=== PATIENT | female | born 1955 | race Caucasian/White ===

== ENCOUNTER 2016-07-08 10:36 | Emergency (ER) | payer MEDICARE ==
[2016-07-08 11:00] LABS: BASOPHILS 0.3 % (0.0-2.0); EOSINOPHILS 1.3 % (0-7); HEMOGLOBIN 15.1 g/dL (12-16); IMMATURE GRANULOCYTES 0.1 % (0-5); LYMPHOCYTES 23.5 % (15-50); MCH 29.8 pg (26.0-34.0); MCHC 33.6 g/dL (31.0-37.0); MCV 88.9 fL (80.0-100.0); MEAN PLATELET VOLUME 10.5 fL (7.4-10.4); MONOCYTES 10.1 % (2-11); NEUTROPHILS 64.7 % (40-80); PLATELET COUNT 183 10x3/uL (130-400); RBC 5.06 10x6/uL (4.00-5.40); RDW 13.4 % (11.5-14.5); WBC 7.1 10x3/uL (4.8-10.8)
[2016-07-08 11:24] LABS: ALBUMIN 4.5 g/dL (3.4-5.0); ALKALINE PHOSPHATASE 44 U/L (46-116); ALT (SGPT) 26 U/L (10-68); AMYLASE - SERUM 54 U/L (25-115); BILIRUBIN - TOTAL 0.53 mg/dL (0.2-1.3); CALC OSMOLALITY 271 mosm/kg (275-300); CALCIUM 9.6 mg/dL (8.5-10.1); CARBON DIOXIDE 28.4 mmol/L (21.0-32.0); CHLORIDE - SERUM 98 mmol/L (98-107); CREATININE - SERUM 0.8 mg/dL (0.6-1.3); GLUCOSE 111 mg/dL (74-106); LIPASE 213 U/L (73-393); POTASSIUM - SERUM 3.9 mmol/L (3.5-5.1); PROTEIN - SERUM 7.6 g/dL (6.4-8.2); SODIUM 136 mmol/L (136-145); UREA NITROGEN 9 mg/dL (7-18); eGFR NON AFRICAN AMERICAN 78 mL/min (90-120)
[2016-07-08 11:49] LABS: APPEARANCE CLEAR (CLEAR); BILIRUBIN NEGATIVE (NEGATIVE); COLOR STRAW (YELLOW); GLUCOSE NEGATIVE (NEGATIVE); KETONE NEGATIVE (NEGATIVE); LEUKOCYTE ESTERASE NEGATIVE (NEGATIVE); NITRITE NEGATIVE (NEGATIVE); PROTEIN NEGATIVE (NEGATIVE); UROBILINOGEN NORMAL (NORMAL)
== END 2016-07-08 16:05 | disposition home or self-care (01) ==
LOC: D.ER 10:36
PROVIDERS: Emergency Medicine; Physician Assistant
DX: R10.30 Lower abdominal pain, unspecified (principal); R06.02 Shortness of breath; Z98.890 Other specified postprocedural states

== ENCOUNTER 2016-09-01 17:46 | Emergency (ER) | payer MEDICARE ==
[2016-09-01 19:16] LABS: APPEARANCE CLEAR (CLEAR); BILIRUBIN NEGATIVE (NEGATIVE); COLOR STRAW (YELLOW); GLUCOSE NEGATIVE (NEGATIVE); KETONE NEGATIVE (NEGATIVE); LEUKOCYTE ESTERASE NEGATIVE (NEGATIVE); NITRITE NEGATIVE (NEGATIVE); PROTEIN NEGATIVE (NEGATIVE); UROBILINOGEN NORMAL (NORMAL)
[2016-09-01 19:49] LABS: BASOPHILS 0.3 % (0.0-2.0); EOSINOPHILS 2.2 % (0-7); HEMATOCRIT 42.9 % (36.0-48.0); HEMOGLOBIN 14.7 g/dL (12-16); IMMATURE GRANULOCYTES 0.2 % (0-5); LYMPHOCYTES 28.3 % (15-50); MCHC 34.3 g/dL (31.0-37.0); MCV 87.6 fL (80.0-100.0); MEAN PLATELET VOLUME 11.1 fL (7.4-10.4); MONOCYTES 13.1 % (2-11); NEUTROPHILS 55.9 % (40-80); PLATELET COUNT 178 10x3/uL (130-400); RDW 13.2 % (11.5-14.5); WBC 6.5 10x3/uL (4.8-10.8)
[2016-09-01 20:08] LABS: ALBUMIN 4.7 g/dL (3.4-5.0); ALKALINE PHOSPHATASE 48 U/L (46-116); ALT (SGPT) 23 U/L (10-68); BILIRUBIN - TOTAL 0.34 mg/dL (0.2-1.3); CALC OSMOLALITY 284 mosm/kg (275-300); CALCIUM 9.5 mg/dL (8.5-10.1); CARBON DIOXIDE 30.1 mmol/L (21.0-32.0); CHLORIDE - SERUM 102 mmol/L (98-107); CREATININE - SERUM 0.7 mg/dL (0.6-1.3); GLUCOSE 93 mg/dL (74-106); PROTEIN - SERUM 7.9 g/dL (6.4-8.2); SODIUM 143 mmol/L (136-145); UREA NITROGEN 12 mg/dL (7-18); eGFR NON AFRICAN AMERICAN > 90 mL/min (90-120)
== END 2016-09-01 20:48 | disposition home or self-care (01) ==
LOC: D.ER 17:46
PROVIDERS: Family Medicine
DX: K92.2 Gastrointestinal hemorrhage, unspecified (principal)

== ENCOUNTER 2016-12-02 08:33 | Day surgery (SDC) | payer MEDICARE ==
[~2016-12-02] VITALS: Ht 165.1 cm; Wt 52.3 kg
[2016-12-02] MEDS ORDERED: HYDROCODON-ACE1 EAC7 PO (09:57)
[2016-12-02 09:58] VITALS: BP 125/73; Ht 165.1 cm; Wt 52.3 kg
[2016-12-02 10:00] LABS: BASOPHILS 0.4 % (0-2); EOSINOPHILS 3.5 % (0-7); HEMATOCRIT 44.4 % (36.0-48.0); HEMOGLOBIN 14.9 g/dL (12-16); LYMPHOCYTES 29.9 % (15-50); MCH 30.5 pg (26.0-34.0); MCHC 33.6 g/dL (31.0-37.0); MCV 90.8 fL (80.0-100.0); MEAN PLATELET VOLUME 11.1 fL (7.4-10.4); MONOCYTES 11.9 % (2-11); NEUTROPHILS 54.3 % (40-80); RBC 4.89 10x6/uL (4.00-5.40); RDW 13.5 % (11.5-14.5); WBC 4.9 10x3/uL (4.8-10.8)
[2016-12-02 10:01] LABS: PLATELET COUNT 218 10x3/uL (130-400)
[2016-12-02 10:16] LABS: CALC OSMOLALITY 280 mosm/kg (275-300); CALCIUM 9.3 mg/dL (8.5-10.1); CARBON DIOXIDE 28.9 mmol/L (21.0-32.0); CHLORIDE - SERUM 105 mmol/L (98-107); CREATININE - SERUM 0.8 mg/dL (0.6-1.3); GLUCOSE 105 mg/dL (74-106); SODIUM 142 mmol/L (136-145); UREA NITROGEN 8 mg/dL (7-18); eGFR NON AFRICAN AMERICAN 78 mL/min (90-120)
--- NOTE | 2016-12-02 10:30 | NUR ---
1000 2 FLEETS ENEMAS GIVEN.
[2016-12-02 11:30] LABS: HCG URINE NEGATIVE (NEGATIVE)
--- NOTE | 2016-12-02 15:56 | NUR ---
PROCEDURE ANESTHESIA STARTED THAN TIVA AVAILABLE AND FINISHED CASE.PT. RECEIVED 3MG VERSED AND 0.5MG HYDROMORPHONE.
--- NOTE | 2016-12-05 19:30 | PRO ---
PATIENT:ANA RITCHIE MEDICAL RECORD: [id number] : 57 LOCATION:D.END ADMISSION DATE: 12/02/16 PROCEDURE PERFORMED BY: JAY CAMPOS MD DATE OF PROCEDURE: 12/02/2016 PSYCH ASSISTANT: Jay Campos MD PROCEDURE: Flexible sigmoidoscopy with hemorrhoidal banding and biopsy. INDICATION: The patient is a 60-year-old white female with a history of colonic inertia, severe adhesions, stemming from endometriosis status post subtotal colectomy many years ago, basically presents for evaluation of intermittent hematochezia and rectal pain. PREMEDICATION: Taper anesthesia. She also received couple mg of Versed IV push. INSTRUMENT: Olympus video adjustable colonoscope and then gastroscope. FINDINGS: Rectal exam revealed small external hemorrhoids as well as what looked like a prolapsing anal papilla. The endoscope was then passed through the rectum and to the small bowel without difficulty. Noted were surgical changes consistent with a subtotal colectomy with anastomotic site roughly 15 cm from the anal verge. The exam was completely normal other than this with the exception of somewhat friable rectal mucosa, small internal hemorrhoids on retroflexion of the rectum, and this what looked like a hypertrophied, inflamed anal papilla at the level of the dentate line. This was quite friable. I took a couple small biopsies from it. I also banded the hemorrhoids with hemorrhoidal banding over the tip of the gastroscope times 4, placed in a circumferential manner just proximal to the dentate line. There were no polyp or lesions, proctitis, diverticular disease, etc. The anastomotic site looked normal. The patient tolerated the procedure well without any immediate complications. IMPRESSION: 1. Small external hemorrhoids. 2. A 1.5 cm inflamed appearing, hypertrophied anal papilla, status post biopsy. Cannot totally rule out something like condyloma or even early anal carcinoma. 3. Small internal hemorrhoids, now status post hemorrhoidal banding times 4. 4. Surgical changes consistent with subtotal colectomy with anastomotic site rectosigmoid junction, roughly 15 cm from the anal verge. 5. Slightly friable rectal mucosa. 6. Otherwise, normal sigmoidoscopy. RECOMMENDATIONS: 1. Follow up biopsy results. 2. Repeat hemorrhoidal banding on a p.r.n. basis. 3. Flex sig every 5 years in light of her family history of colon cancer. 4. Consider surgical excision of this anal lesion depending on her biopsy results. TRANSINT:[id number] Voice Confirmation ID: [id number] DOCUMENT ID: [id number] PROCEDURE NOTE [id number] ANA RITCHIE JOHN MD at 1930 CC: [id number] DICTATION DATE: 12/02/16 1338 [facility] CONCI[facility]GE: 12/03/16 0807 [facility] 12/02/16 [id number] [place] [address]
== END 2016-12-02 14:20 | disposition home or self-care (01) ==
LOC: D.ENDO 08:33
PROVIDERS: Anesthesiology; Internal Medicine Gastroenterology
DX: K64.4 Residual hemorrhoidal skin tags (principal); K64.8 Other hemorrhoids; D12.9 Benign neoplasm of anus and anal canal

== ENCOUNTER → 2016-12-04 | Emergency (ER) | payer MEDICARE ==
[2016-12-02 09:58] VITALS: BMI 19.1
[~2016-12-04] MED LIST: HYDROCODON-ACE1 EAC7 PO
[2016-12-04 13:20] LABS: BASOPHILS 0.1 % (0-2); EOSINOPHILS 0.9 % (0-7); HEMATOCRIT 44.7 % (36.0-48.0); HEMOGLOBIN 14.9 g/dL (12-16); IMMATURE GRANULOCYTES 0.1 % (0-5); LYMPHOCYTES 19.4 % (15-50); MCH 29.8 pg (26.0-34.0); MCHC 33.3 g/dL (31.0-37.0); MCV 89.4 fL (80.0-100.0); MEAN PLATELET VOLUME 11.1 fL (7.4-10.4); MONOCYTES 9.7 % (2-11); NEUTROPHILS 69.8 % (40-80); PLATELET COUNT 183 10x3/uL (130-400); RDW 13.5 % (11.5-14.5); WBC 6.9 10x3/uL (4.8-10.8)
[2016-12-04 13:37] LABS: ALBUMIN 4.4 g/dL (3.4-5.0); ALKALINE PHOSPHATASE 55 U/L (46-116); ALT (SGPT) 23 U/L (10-68); BILIRUBIN - TOTAL 0.38 mg/dL (0.2-1.3); CALC OSMOLALITY 279 mosm/kg (275-300); CALCIUM 9.6 mg/dL (8.5-10.1); CARBON DIOXIDE 24.9 mmol/L (21.0-32.0); CHLORIDE - SERUM 105 mmol/L (98-107); CREATININE - SERUM 0.7 mg/dL (0.6-1.3); GLUCOSE 104 mg/dL (74-106); MAGNESIUM - SERUM 2.1 mg/dL (1.8-2.4); POTASSIUM - SERUM 3.8 mmol/L (3.5-5.1); PROTEIN - SERUM 7.8 g/dL (6.4-8.2); SODIUM 141 mmol/L (136-145); UREA NITROGEN 9 mg/dL (7-18); eGFR NON AFRICAN AMERICAN > 90 mL/min (90-120)
== END ==
LOC: D.ER 10:11
PROVIDERS: Emergency Medicine
DX: K64.4 Residual hemorrhoidal skin tags (principal); R10.9 Unspecified abdominal pain

== ENCOUNTER → 2017-02-06 16:52 | Outpatient (CLI) | payer MEDICARE ==
[2016-12-02 09:58] VITALS: BMI 19.1
== END | disposition home or self-care (01) ==
LOC: D.MAMMO 10-17 16:15
DX: Z12.31 Encounter for screening mammogram for malignant neoplasm of breast (principal)

== ENCOUNTER → 2017-02-14 16:55 | Outpatient (CLI) | payer MEDICARE ==
[2016-12-02 09:58] VITALS: BMI 19.1
== END | disposition home or self-care (01) ==
LOC: D.MAMMO 13:00
DX: R92.8 Other abnormal and inconclusive findings on diagnostic imaging of breast (principal)

== ENCOUNTER 2017-02-28 14:04 | Emergency (ER) | payer MEDICARE ==
[2016-12-02 09:58] VITALS: BMI 19.1
== END 2017-02-28 14:07 | disposition left against medical advice (07) ==
LOC: D.ER 14:04
DX: R10.9 Unspecified abdominal pain (principal)

== ENCOUNTER 2017-02-28 15:48 | Emergency (ER) | payer MEDICARE ==
[2016-12-02 09:58] VITALS: BMI 19.1
[2017-02-28 16:34] LABS: BASOPHILS 0.3 % (0-2); EOSINOPHILS 2.7 % (0-7); HEMATOCRIT 45.8 % (36.0-48.0); HEMOGLOBIN 15.6 g/dL (12-16); IMMATURE GRANULOCYTES 0.1 % (0-5); LYMPHOCYTES 29.3 % (15-50); MCH 30.4 pg (26.0-34.0); MCHC 34.1 g/dL (31.0-37.0); MCV 89.1 fL (80.0-100.0); MEAN PLATELET VOLUME 11.1 fL (7.4-10.4); MONOCYTES 10.1 % (2-11); NEUTROPHILS 57.5 % (40-80); PLATELET COUNT 183 10x3/uL (130-400); RBC 5.14 10x6/uL (4.00-5.40); RDW 13.7 % (11.5-14.5); WBC 7.6 10x3/uL (4.8-10.8)
[2017-02-28 17:01] LABS: ALBUMIN 4.6 g/dL (3.4-5.0); ALKALINE PHOSPHATASE 59 U/L (46-116); ALT (SGPT) 23 U/L (10-68); AMYLASE - SERUM 61 U/L (25-115); CALC OSMOLALITY 281 mosm/kg (275-300); CALCIUM 9.4 mg/dL (8.5-10.1); CARBON DIOXIDE 26.4 mmol/L (21.0-32.0); CHLORIDE - SERUM 102 mmol/L (98-107); CREATININE - SERUM 0.7 mg/dL (0.6-1.3); GLUCOSE 98 mg/dL (74-106); LIPASE 196 U/L (73-393); SODIUM 142 mmol/L (136-145); UREA NITROGEN 11 mg/dL (7-18); eGFR NON AFRICAN AMERICAN 90 mL/min (90-120)
[2017-02-28 18:59] LABS: APPEARANCE CLEAR (CLEAR); COLOR YELLOW (YELLOW); GLUCOSE NEGATIVE (NEGATIVE); KETONE NEGATIVE (NEGATIVE); LEUKOCYTE ESTERASE NEGATIVE (NEGATIVE); NITRITE NEGATIVE (NEGATIVE); PROTEIN NEGATIVE (NEGATIVE); UROBILINOGEN NORMAL (NORMAL)
[2017-02-28 19:00] LABS: BILIRUBIN NEGATIVE (NEGATIVE)
== END 2017-02-28 19:30 | disposition home or self-care (01) ==
LOC: D.ER 15:48
PROVIDERS: Emergency Medicine
DX: R10.9 Unspecified abdominal pain (principal); K59.00 Constipation, unspecified

== ENCOUNTER 2017-03-28 13:15 | Emergency (ER) | payer MEDICARE ==
[2016-12-02 09:58] VITALS: BMI 19.1
== END 2017-03-28 14:53 | disposition home or self-care (01) ==
LOC: D.ER 13:15
DX: R09.1 Pleurisy (principal)

== ENCOUNTER 2017-05-30 12:41 | Emergency (ER) | payer MEDICARE ==
[2016-12-02 09:58] VITALS: BMI 19.1
[2017-05-30 14:40] LABS: BASOPHILS 0.3 % (0-2); EOSINOPHILS 0.9 % (0-7); HEMATOCRIT 43.7 % (36.0-48.0); HEMOGLOBIN 15.2 g/dL (12-16); IMMATURE GRANULOCYTES 0.1 % (0-5); LYMPHOCYTES 24.5 % (15-50); MCH 30.8 pg (26.0-34.0); MCHC 34.8 g/dL (31.0-37.0); MCV 88.6 fL (80.0-100.0); MEAN PLATELET VOLUME 10.6 fL (7.4-10.4); MONOCYTES 8.1 % (2-11); NEUTROPHILS 66.1 % (40-80); PLATELET COUNT 176 10x3/uL (130-400); RBC 4.93 10x6/uL (4.00-5.40); RDW 13.4 % (11.5-14.5); WBC 6.8 10x3/uL (4.8-10.8)
[2017-05-30 15:19] LABS: ALBUMIN 4.6 g/dL (3.4-5.0); ALKALINE PHOSPHATASE 62 U/L (46-116); ALT (SGPT) 23 U/L (10-68); CALC OSMOLALITY 277 mosm/kg (275-300); CALCIUM 9.4 mg/dL (8.5-10.1); CARBON DIOXIDE 29.9 mmol/L (21.0-32.0); CHLORIDE - SERUM 101 mmol/L (98-107); CREATININE - SERUM 0.8 mg/dL (0.6-1.3); GLUCOSE 103 mg/dL (74-106); PROTEIN - SERUM 8.1 g/dL (6.4-8.2); SODIUM 140 mmol/L (136-145); UREA NITROGEN 9 mg/dL (7-18); eGFR NON AFRICAN AMERICAN 77 mL/min (90-120)
== END 2017-05-30 17:03 | disposition home or self-care (01) ==
LOC: D.ER 12:41
PROVIDERS: Emergency Medicine
DX: R10.9 Unspecified abdominal pain (principal)

== ENCOUNTER 2017-07-08 10:04 | Emergency (ER) | payer MEDICARE ==
[2016-12-02 09:58] VITALS: BMI 19.1
[2017-07-08 10:50] LABS: BASOPHILS 0.1 % (0-2); EOSINOPHILS 0.8 % (0-7); HEMATOCRIT 43.8 % (36.0-48.0); IMMATURE GRANULOCYTES 0.1 % (0-5); LYMPHOCYTES 15.6 % (15-50); MCH 30.4 pg (26.0-34.0); MCHC 34.2 g/dL (31.0-37.0); MCV 88.8 fL (80.0-100.0); MEAN PLATELET VOLUME 10.6 fL (7.4-10.4); MONOCYTES 8.5 % (2-11); NEUTROPHILS 74.9 % (40-80); PLATELET COUNT 208 10x3/uL (130-400); RBC 4.93 10x6/uL (4.00-5.40); RDW 13.3 % (11.5-14.5); WBC 7.4 10x3/uL (4.8-10.8)
[2017-07-08 10:59] LABS: PROTIME 12.8 SECONDS (11.6-15.0)
[2017-07-08 11:01] LABS: D-DIMER-QUANTITATIVE < 0.27 ug/mLFEU (0.20-0.54)
[2017-07-08 11:13] LABS: ALBUMIN 4.5 g/dL (3.4-5.0); ALKALINE PHOSPHATASE 59 U/L (46-116); ALT (SGPT) 22 U/L (10-68); CALC OSMOLALITY 270 mosm/kg (275-300); CALCIUM 9.3 mg/dL (8.5-10.1); CHLORIDE - SERUM 97 mmol/L (98-107); CREATININE - SERUM 0.9 mg/dL (0.6-1.3); GLUCOSE 118 mg/dL (74-106); PROTEIN - SERUM 7.8 g/dL (6.4-8.2); SODIUM 135 mmol/L (136-145); UREA NITROGEN 12 mg/dL (7-18); eGFR NON AFRICAN AMERICAN 68 mL/min (90-120)
[2017-07-08 11:14] LABS: CKMB 1.7 U/L (0.0-3.6); CREATINE KINASE 114 UL (21-215); MAGNESIUM - SERUM 2.2 mg/dL (1.8-2.4); TROPONIN-I < 0.017 ng/mL (0.000-0.060)
== END 2017-07-08 11:58 | disposition home or self-care (01) ==
LOC: D.ER 10:04
PROVIDERS: Family Medicine
DX: J06.9 Acute upper respiratory infection, unspecified (principal)

== ENCOUNTER → 2017-09-04 18:54 | Outpatient (CLI) | payer MEDICARE ==
[2016-12-02 09:58] VITALS: BMI 19.1
== END ==
LOC: D.MAMMO 13:00
DX: R92.8 Other abnormal and inconclusive findings on diagnostic imaging of breast (principal)

== ENCOUNTER 2017-09-15 13:09 | Emergency (ER) | payer MEDICARE ==
[2016-12-02 09:58] VITALS: BMI 19.1
== END 2017-09-15 16:13 | disposition home or self-care (01) ==
LOC: D.ER 13:09
DX: S93.402A Sprain of unspecified ligament of left ankle, initial encounter (principal); W19.XXXA Unspecified fall, initial encounter; Y93.89 Activity, other specified; Y92.019 Unspecified place in single-family (private) house as the place of occurrence of the external cause

== ENCOUNTER 2018-03-21 16:46 | Emergency (ER) | payer MEDICARE ==
[~2018-03-21] VITALS: Ht 165.1 cm; Wt 52.3 kg
[2018-03-21 16:57] VITALS: Ht 165.1 cm; Wt 52.3 kg
[2018-03-21 17:11] LABS: BASOPHILS 0.5 % (0-2); EOSINOPHILS 2.7 % (0-7); HEMATOCRIT 41.3 % (36.0-48.0); HEMOGLOBIN 14.4 g/dL (12-16); IMMATURE GRANULOCYTES 0.4 % (0-5); LYMPHOCYTES 37.5 % (15-50); MCH 30.7 pg (26.0-34.0); MCHC 34.9 g/dL (31.0-37.0); MCV 88.1 fL (80.0-100.0); MEAN PLATELET VOLUME 11.1 fL (7.4-10.4); MONOCYTES 11.1 % (2-11); NEUTROPHILS 47.8 % (40-80); PLATELET COUNT 167 10x3/uL (130-400); RBC 4.69 10x6/uL (4.00-5.40); RDW 13.7 % (11.5-14.5); WBC 5.6 10x3/uL (4.8-10.8)
[2018-03-21 17:48] LABS: ALBUMIN 4.4 g/dL (3.4-5.0); ALKALINE PHOSPHATASE 51 U/L (46-116); ALT (SGPT) 26 U/L (10-68); BILIRUBIN - TOTAL 0.48 mg/dL (0.2-1.3); CALC OSMOLALITY 266 mosm/kg (275-300); CARBON DIOXIDE 27.2 mmol/L (21.0-32.0); CHLORIDE - SERUM 99 mmol/L (98-107); CREATININE - SERUM 0.7 mg/dL (0.6-1.3); GLUCOSE 103 mg/dL (74-106); POTASSIUM - SERUM 3.4 mmol/L (3.5-5.1); PROTEIN - SERUM 7.7 g/dL (6.4-8.2); SODIUM 135 mmol/L (136-145); UREA NITROGEN 5 mg/dL (7-18); eGFR NON AFRICAN AMERICAN 90 mL/min (90-120)
[2018-03-21 17:54] LABS: CKMB 1.1 U/L (0.0-3.6); CREATINE KINASE 101 UL (21-215)
[2018-03-21 17:58] LABS: TROPONIN-I < 0.017 ng/mL (0.000-0.060)
[2018-03-21 21:27] VITALS: BP 135/74
== END 2018-03-21 21:27 | disposition home or self-care (01) ==
LOC: D.ER 16:46
PROVIDERS: Family Medicine
DX: R07.81 Pleurodynia (principal); R06.00 Dyspnea, unspecified; I25.10 Atherosclerotic heart disease of native coronary artery without angina pectoris; Z86.11 Personal history of tuberculosis

== ENCOUNTER 2018-07-23 15:47 | Emergency (ER) | payer MEDICARE ==
[~2018-07-23] VITALS: Ht 165.1 cm; Wt 54.5 kg
[2018-07-23 15:50] VITALS: BP 160/105; Ht 165.1 cm; Wt 54.5 kg
[2018-07-23 16:22] LABS: BASOPHILS 0.3 % (0-2); EOSINOPHILS 3.6 % (0-7); HEMATOCRIT 39.7 % (36.0-48.0); HEMOGLOBIN 13.7 g/dL (12-16); IMMATURE GRANULOCYTES 0.2 % (0-5); LYMPHOCYTES 28.4 % (15-50); MCH 30.5 pg (26.0-34.0); MCHC 34.5 g/dL (31.0-37.0); MCV 88.4 fL (80.0-100.0); MEAN PLATELET VOLUME 10.4 fL (7.4-10.4); MONOCYTES 11.4 % (2-11); NEUTROPHILS 56.1 % (40-80); PLATELET COUNT 192 10x3/uL (130-400); RBC 4.49 10x6/uL (4.00-5.40); RDW 13.3 % (11.5-14.5); WBC 5.8 10x3/uL (4.8-10.8)
== END 2018-07-23 18:39 | disposition home or self-care (01) ==
LOC: D.ER 15:47
PROVIDERS: Family Medicine
DX: R06.00 Dyspnea, unspecified (principal); F41.9 Anxiety disorder, unspecified

== ENCOUNTER 2018-09-20 09:32 | Emergency (ER) | payer MEDICARE ==
[~2018-09-20] VITALS: Ht 165.1 cm; Wt 54.5 kg
[2018-09-20 09:38] VITALS: Ht 165.1 cm; Wt 54.5 kg
[2018-09-20 10:51] LABS: BASOPHILS 0.2 % (0-2); EOSINOPHILS 0.9 % (0-7); HEMATOCRIT 44.1 % (36.0-48.0); HEMOGLOBIN 15.4 g/dL (12-16); LYMPHOCYTES 18.1 % (15-50); MCH 30.7 pg (26.0-34.0); MCHC 34.9 g/dL (31.0-37.0); MEAN PLATELET VOLUME 11.3 fL (7.4-10.4); MONOCYTES 9.5 % (2-11); NEUTROPHILS 71.3 % (40-80); PLATELET COUNT 176 10x3/uL (130-400); RBC 5.01 10x6/uL (4.00-5.40); RDW 13.5 % (11.5-14.5); WBC 6.3 10x3/uL (4.8-10.8)
[2018-09-20 11:02] LABS: APPEARANCE CLEAR (CLEAR); COLOR YELLOW (YELLOW)
[2018-09-20 11:03] LABS: BILIRUBIN NEGATIVE (NEGATIVE); GLUCOSE NEGATIVE (NEGATIVE); KETONE SMALL mg/dL (NEGATIVE); NITRITE NEGATIVE (NEGATIVE); PROTEIN NEGATIVE (NEGATIVE); UROBILINOGEN NORMAL (NORMAL)
[2018-09-20 11:05] LABS: ALBUMIN 4.6 g/dL (3.4-5.0); ALKALINE PHOSPHATASE 54 U/L (46-116); ALT (SGPT) 25 U/L (10-68); BILIRUBIN - TOTAL 0.46 mg/dL (0.2-1.3); CALC OSMOLALITY 271 mosm/kg (275-300); CALCIUM 9.3 mg/dL (8.5-10.1); CARBON DIOXIDE 26.9 mmol/L (21.0-32.0); CHLORIDE - SERUM 98 mmol/L (98-107); CREATININE - SERUM 0.8 mg/dL (0.6-1.3); GLUCOSE 116 mg/dL (74-106); POTASSIUM - SERUM 3.9 mmol/L (3.5-5.1); SODIUM 136 mmol/L (136-145); UREA NITROGEN 9 mg/dL (7-18); eGFR NON AFRICAN AMERICAN 77 mL/min (90-120)
[2018-09-20 11:09] LABS: AMYLASE - SERUM 41 U/L (25-115); LIPASE 181 U/L (73-393); TROPONIN-I < 0.017 ng/mL (0.000-0.060)
[2018-09-20 13:40] VITALS: BP 128/66
== END 2018-09-20 13:41 | disposition home or self-care (01) ==
LOC: D.ER 09:32
PROVIDERS: Emergency Medicine
DX: R10.84 Generalized abdominal pain (principal); Z90.49 Acquired absence of other specified parts of digestive tract; R06.02 Shortness of breath

== ENCOUNTER 2019-01-28 09:54 | Emergency (ER) | payer MEDICARE ==
[~2019-01-28] VITALS: Ht 165.1 cm; Wt 52.3 kg
[2019-01-28 10:04] VITALS: Ht 165.1 cm; Wt 52.3 kg
[2019-01-28 10:55] LABS: BASOPHILS 0.4 % (0-2); EOSINOPHILS 3.9 % (0-7); HEMATOCRIT 34.4 % (36.0-48.0); HEMOGLOBIN 11.6 g/dL (12-16); IMMATURE GRANULOCYTES 0.4 % (0-5); LYMPHOCYTES 21.2 % (15-50); MCH 28.4 pg (26.0-34.0); MCHC 33.7 g/dL (31.0-37.0); MCV 84.1 fL (80.0-100.0); MEAN PLATELET VOLUME 10.7 fL (7.4-10.4); MONOCYTES 5.3 % (2-11); NEUTROPHILS 68.8 % (40-80); RBC 4.09 10x6/uL (4.00-5.40); RDW 13.6 % (11.5-14.5); WBC 5.1 10x3/uL (4.8-10.8)
[2019-01-28 11:03] LABS: PLATELET COUNT 218 10x3/uL (130-400)
[2019-01-28 11:25] LABS: ALBUMIN 4.6 g/dL (3.4-5.0); ALKALINE PHOSPHATASE 57 U/L (46-116); ALT (SGPT) 23 U/L (10-68); BILIRUBIN - TOTAL 0.53 mg/dL (0.2-1.3); CALC OSMOLALITY 275 mosm/kg (275-300); CALCIUM 9.4 mg/dL (8.5-10.1); CARBON DIOXIDE 25.6 mmol/L (21.0-32.0); CHLORIDE - SERUM 102 mmol/L (98-107); CREATININE - SERUM 0.8 mg/dL (0.6-1.3); GLUCOSE 110 mg/dL (74-106); POTASSIUM - SERUM 4.2 mmol/L (3.5-5.1); PROTEIN - SERUM 7.9 g/dL (6.4-8.2); SODIUM 138 mmol/L (136-145); UREA NITROGEN 9 mg/dL (7-18); eGFR NON AFRICAN AMERICAN 77 mL/min (90-120)
[2019-01-28 11:28] LABS: AMYLASE - SERUM 55 U/L (25-115); LIPASE 205 U/L (73-393); TROPONIN-I < 0.017 ng/mL (0.000-0.060)
[2019-01-28 12:40] VITALS: BP 114/52
== END 2019-01-28 12:42 | disposition home or self-care (01) ==
LOC: D.ER 09:54
PROVIDERS: Family Medicine
DX: R10.30 Lower abdominal pain, unspecified (principal); Z87.19 Personal history of other diseases of the digestive system

== ENCOUNTER 2019-02-20 09:35 | Emergency (ER) | payer MEDICARE ==
[~2019-02-20] VITALS: Ht 165.1 cm; Wt 52.3 kg
[2019-02-20 09:40] VITALS: Ht 165.1 cm; Wt 52.3 kg
[2019-02-20 11:39] VITALS: BP 147/87
== END 2019-02-20 11:43 | disposition home or self-care (01) ==
LOC: D.ER 09:35
DX: S00.03XA Contusion of scalp, initial encounter (principal); W18.31XA Fall on same level due to stepping on an object, initial encounter; Y93.89 Activity, other specified; Y92.89 Other specified places as the place of occurrence of the external cause; S92.331A Displaced fracture of third metatarsal bone, right foot, initial encounter for closed fracture; S92.341A Displaced fracture of fourth metatarsal bone, right foot, initial encounter for closed fracture

== ENCOUNTER 2019-03-27 12:18 | Emergency (ER) | payer MEDICARE ==
[~2019-03-27] VITALS: Ht 165.1 cm; Wt 52.3 kg
[2019-03-27 12:35] VITALS: Ht 165.1 cm; Wt 52.3 kg
[2019-03-27 13:02] LABS: BASOPHILS 0.4 % (0-2); EOSINOPHILS 1.3 % (0-7); HEMATOCRIT 45.8 % (36.0-48.0); HEMOGLOBIN 15.4 g/dL (12-16); IMMATURE GRANULOCYTES 0.1 % (0-5); LYMPHOCYTES 28.8 % (15-50); MCH 30.8 pg (26.0-34.0); MCHC 33.6 g/dL (31.0-37.0); MCV 91.6 fL (80.0-100.0); MEAN PLATELET VOLUME 10.5 fL (7.4-10.4); MONOCYTES 9.4 % (2-11); PLATELET COUNT 204 10x3/uL (130-400); RDW 13.1 % (11.5-14.5); WBC 7.7 10x3/uL (4.8-10.8)
[2019-03-27 13:13] LABS: APPEARANCE CLEAR (CLEAR); BILIRUBIN NEGATIVE (NEGATIVE); COLOR STRAW (YELLOW); GLUCOSE NEGATIVE (NEGATIVE); KETONE NEGATIVE (NEGATIVE); NITRITE NEGATIVE (NEGATIVE); PROTEIN NEGATIVE (NEGATIVE); SPECIFIC GRAVITY 1.005 (1.005-1.020); UROBILINOGEN NORMAL (NORMAL)
[2019-03-27 13:16] LABS: ALBUMIN 4.7 g/dL (3.4-5.0); ALKALINE PHOSPHATASE 64 U/L (46-116); ALT (SGPT) 22 U/L (10-68); BILIRUBIN - TOTAL 0.29 mg/dL (0.2-1.3); CALC OSMOLALITY 274 mosm/kg (275-300); CALCIUM 9.4 mg/dL (8.5-10.1); CARBON DIOXIDE 29.2 mmol/L (21.0-32.0); CHLORIDE - SERUM 99 mmol/L (98-107); CREATININE - SERUM 0.8 mg/dL (0.6-1.3); GLUCOSE 103 mg/dL (74-106); POTASSIUM - SERUM 3.5 mmol/L (3.5-5.1); PROTEIN - SERUM 8.4 g/dL (6.4-8.2); SODIUM 138 mmol/L (136-145); UREA NITROGEN 10 mg/dL (7-18); eGFR NON AFRICAN AMERICAN 77 mL/min (90-120)
[2019-03-27 13:20] LABS: AMYLASE - SERUM 58 U/L (25-115); LIPASE 170 U/L (73-393); TROPONIN-I < 0.017 ng/mL (0.000-0.060)
[2019-03-27] MEDS ORDERED: LEVSIN/ANASP0.125 MG PO (14:23)
[2019-03-27 15:10] VITALS: BP 134/84
== END 2019-03-27 15:05 | disposition home or self-care (01) ==
LOC: D.ER 12:18
PROVIDERS: Family Medicine
DX: R10.9 Unspecified abdominal pain (principal)

== ENCOUNTER 2019-06-04 15:49 | Emergency (ER) | payer MEDICARE ==
[~2019-06-04] VITALS: Ht 165.1 cm; Wt 52.3 kg
[~2019-06-04 15:49] MED LIST changes: +LEVSIN/ANASP0.125 MG PO
[2019-06-04 15:59] VITALS: Ht 165.1 cm; Wt 52.3 kg
[2019-06-04 16:39] LABS: BASOPHILS 0.3 % (0-2); EOSINOPHILS 1.6 % (0-7); HEMATOCRIT 42.5 % (36.0-48.0); HEMOGLOBIN 14.5 g/dL (12-16); IMMATURE GRANULOCYTES 0.3 % (0-5); LYMPHOCYTES 27.9 % (15-50); MCH 31.2 pg (26.0-34.0); MCHC 34.1 g/dL (31.0-37.0); MCV 91.4 fL (80.0-100.0); MONOCYTES 8.7 % (2-11); NEUTROPHILS 61.2 % (40-80); PLATELET COUNT 226 10x3/uL (130-400); RBC 4.65 10x6/uL (4.00-5.40); RDW 13.4 % (11.5-14.5); WBC 6.8 10x3/uL (4.8-10.8)
[2019-06-04 17:19] LABS: CALC OSMOLALITY 278 mosm/kg (275-300); CALCIUM 8.5 mg/dL (8.5-10.1); CARBON DIOXIDE 27.1 mmol/L (21.0-32.0); CHLORIDE - SERUM 105 mmol/L (98-107); CREATININE - SERUM 0.7 mg/dL (0.6-1.3); GLUCOSE 93 mg/dL (74-106); POTASSIUM - SERUM 3.9 mmol/L (3.5-5.1); SODIUM 140 mmol/L (136-145); UREA NITROGEN 13 mg/dL (7-18); eGFR NON AFRICAN AMERICAN 90 mL/min (90-120)
[2019-06-04 17:25] LABS: ALKALINE PHOSPHATASE 50 U/L (46-116); ALT (SGPT) 25 U/L (10-68); BILIRUBIN - TOTAL 0.29 mg/dL (0.2-1.3)
[2019-06-04 18:27] LABS: APPEARANCE CLEAR (CLEAR); BILIRUBIN NEGATIVE (NEGATIVE); COLOR YELLOW (YELLOW); GLUCOSE NEGATIVE (NEGATIVE); KETONE NEGATIVE (NEGATIVE); NITRITE NEGATIVE (NEGATIVE); PROTEIN NEGATIVE (NEGATIVE); UROBILINOGEN NORMAL (NORMAL)
[2019-06-04 18:28] LABS: WHITE CELLS - URINE OCC /hpf (NEGATIVE)
[2019-06-04 19:09] VITALS: BP 134/76
== END 2019-06-04 19:10 | disposition home or self-care (01) ==
LOC: D.ER 15:49
PROVIDERS: Family Medicine
DX: R10.9 Unspecified abdominal pain (principal); R11.2 Nausea with vomiting, unspecified

== ENCOUNTER 2019-07-05 09:00 | Outpatient (CLI) | payer MEDICARE ==
[2019-06-04 15:59] VITALS: BMI 19.1
== END 2019-07-05 10:00 | disposition home or self-care (01) ==
LOC: D.MAMMO 09:00
PROVIDERS: ATTEND Family Medicine
DX: R92.8 Other abnormal and inconclusive findings on diagnostic imaging of breast (principal)

== ENCOUNTER 2019-11-07 11:42 | Emergency (ER) | payer MEDICARE ==
[~2019-11-07] VITALS: Ht 165.1 cm; Wt 68.2 kg
[2019-11-07 11:45] VITALS: Ht 165.1 cm; Wt 68.2 kg
[2019-11-07 12:18] LABS: BILIRUBIN NEGATIVE (NEGATIVE); GLUCOSE NEGATIVE (NEGATIVE); KETONE NEGATIVE (NEGATIVE); NITRITE NEGATIVE (NEGATIVE); SPECIFIC GRAVITY 1.005 (1.005-1.020); UROBILINOGEN NORMAL (NORMAL)
[2019-11-07 12:29] LABS: CALC OSMOLALITY 263 mosm/kg (275-300); CALCIUM 8.9 mg/dL (8.5-10.1); CHLORIDE - SERUM 97 mmol/L (98-107); CREATININE - SERUM 0.7 mg/dL (0.6-1.3); GLUCOSE 134 mg/dL (74-106); POTASSIUM - SERUM 4.3 mmol/L (3.5-5.1); SODIUM 131 mmol/L (136-145); UREA NITROGEN 10 mg/dL (7-18); eGFR NON AFRICAN AMERICAN 90 mL/min (90-120)
[2019-11-07 12:37] LABS: ALBUMIN 4.3 g/dL (3.4-5.0); ALKALINE PHOSPHATASE 60 U/L (30-120); ALT (SGPT) 28 U/L (10-68); AMYLASE - SERUM 48 U/L (25-115); BILIRUBIN - TOTAL 0.46 mg/dL (0.2-1.3); LIPASE 150 U/L (73-393); PROTEIN - SERUM 7.3 g/dL (6.4-8.2)
[2019-11-07 12:43] LABS: TROPONIN-I < 0.017 ng/mL (0.000-0.060)
[2019-11-07 13:03] LABS: BASOPHILS 0.2 % (0-2); EOSINOPHILS 1.6 % (0-7); HEMOGLOBIN 14.8 g/dL (12-16); IMMATURE GRANULOCYTES 0.2 % (0-5); LYMPHOCYTES 22.2 % (15-50); MCH 31.2 pg (26.0-34.0); MCHC 34.4 g/dL (31.0-37.0); MCV 90.5 fL (80.0-100.0); MEAN PLATELET VOLUME 11.5 fL (7.4-10.4); NEUTROPHILS 65.8 % (40-80); PLATELET COUNT 163 10x3/uL (130-400); RBC 4.75 10x6/uL (4.00-5.40); RDW 13.1 % (11.5-14.5); WBC 5.1 10x3/uL (4.8-10.8)
[2019-11-07 14:02] VITALS: BP 143/86
== END 2019-11-07 14:04 | disposition home or self-care (01) ==
LOC: D.ER 11:42
PROVIDERS: Family Medicine
DX: R10.30 Lower abdominal pain, unspecified (principal); G89.29 Other chronic pain; R11.10 Vomiting, unspecified

== ENCOUNTER 2020-01-06 13:28 | Emergency (ER) | payer MEDICARE ==
[~2020-01-06] VITALS: Ht 165.1 cm; Wt 52.3 kg
[2020-01-06 13:56] VITALS: Ht 165.1 cm; Wt 52.3 kg
[2020-01-06 15:11] LABS: BASOPHILS 0.2 % (0-2); EOSINOPHILS 0.8 % (0-7); HEMATOCRIT 46.9 % (36.0-48.0); HEMOGLOBIN 15.7 g/dL (12-16); IMMATURE GRANULOCYTES 0.3 % (0-5); LYMPHOCYTES 23.1 % (15-50); MCHC 33.5 g/dL (31.0-37.0); MCV 92.7 fL (80.0-100.0); MEAN PLATELET VOLUME 10.7 fL (7.4-10.4); MONOCYTES 10.2 % (2-11); NEUTROPHILS 65.4 % (40-80); PLATELET COUNT 179 10x3/uL (130-400); RBC 5.06 10x6/uL (4.00-5.40); RDW 13.7 % (11.5-14.5); WBC 6.1 10x3/uL (4.8-10.8)
[2020-01-06 15:17] LABS: BILIRUBIN NEGATIVE (NEGATIVE); GLUCOSE NEGATIVE (NEGATIVE); KETONE NEGATIVE (NEGATIVE); NITRITE NEGATIVE (NEGATIVE); UROBILINOGEN NORMAL (NORMAL)
[2020-01-06 15:25] LABS: CALC OSMOLALITY 275 mosm/kg (275-300); CALCIUM 9.6 mg/dL (8.5-10.1); CARBON DIOXIDE 30.1 mmol/L (21.0-32.0); CHLORIDE - SERUM 100 mmol/L (98-107); CREATININE - SERUM 0.8 mg/dL (0.6-1.3); GLUCOSE 111 mg/dL (74-106); POTASSIUM - SERUM 3.2 mmol/L (3.5-5.1); SODIUM 138 mmol/L (136-145); UREA NITROGEN 9 mg/dL (7-18); eGFR NON AFRICAN AMERICAN 77 mL/min (90-120)
[2020-01-06 15:34] LABS: ALBUMIN 4.9 g/dL (3.4-5.0); ALKALINE PHOSPHATASE 70 U/L (30-120); ALT (SGPT) 24 U/L (10-68); AMYLASE - SERUM 50 U/L (25-115); BILIRUBIN - TOTAL 0.47 mg/dL (0.2-1.3); LIPASE 89 U/L (73-393); PROTEIN - SERUM 8.4 g/dL (6.4-8.2)
[2020-01-06 15:36] LABS: TROPONIN-I < 0.017 ng/mL (0.000-0.060)
[2020-01-06] MEDS ORDERED: PHENERGAN25 M1 PO (16:20)
[2020-01-06 17:03] VITALS: BP 153/83
== END 2020-01-06 17:03 | disposition home or self-care (01) ==
LOC: D.ER 13:28
DX: R10.9 Unspecified abdominal pain (principal); Z87.19 Personal history of other diseases of the digestive system

== ENCOUNTER 2020-02-28 10:13 | Emergency (ER) | payer MEDICARE ==
[~2020-02-28] VITALS: Ht 165.1 cm; Wt 52.3 kg
[~2020-02-28 10:13] MED LIST changes: +PHENERGAN25 M1 PO
[2020-02-28 10:16] VITALS: BP 129/77; Ht 165.1 cm; Wt 52.3 kg
[2020-02-28] MEDS ORDERED: MOBIC7.5 MG PO (12:01)
== END 2020-02-28 12:25 | disposition home or self-care (01) ==
LOC: D.ER 10:13
DX: M79.671 Pain in right foot (principal); M25.571 Pain in right ankle and joints of right foot

== ENCOUNTER 2020-09-15 16:42 | Emergency (ER) | payer MEDICARE ==
[~2020-09-15] VITALS: Ht 165.1 cm; Wt 52.3 kg
[~2020-09-15 16:42] MED LIST changes: +MOBIC7.5 MG PO; +PROTONIX40 MG PO
[2020-09-15 16:47] VITALS: BP 124/75; Ht 165.1 cm; Wt 52.3 kg
== END 2020-09-15 18:55 | disposition left against medical advice (07) ==
LOC: D.ER 16:42
DX: R06.02 Shortness of breath (principal); Z53.21 Procedure and treatment not carried out due to patient leaving prior to being seen by health care provider

== ENCOUNTER 2020-10-19 10:49 | Emergency (ER) | payer MEDICARE ==
[~2020-10-19] VITALS: Ht 165.1 cm; Wt 52.3 kg
[2020-10-19 11:00] VITALS: BP 120/74; Ht 165.1 cm; Wt 52.3 kg
[2020-10-19] MEDS ORDERED: HYDROCODON-ACE1 EA10 PO (11:02)
== END 2020-10-19 13:27 | disposition home or self-care (01) ==
LOC: D.ER 10:49
DX: M25.551 Pain in right hip (principal); M79.2 Neuralgia and neuritis, unspecified

== ENCOUNTER 2020-12-16 16:07 | Emergency (ER) | payer MEDICARE ==
[~2020-12-16] VITALS: Ht 165.1 cm; Wt 52.3 kg
[~2020-12-16 16:07] MED LIST changes: +HYDROCODON-ACE1 EA10 PO
[2020-12-16 16:29] LABS: BASOPHILS 0.9 % (0-2); EOSINOPHILS 2.6 % (0-7); HEMATOCRIT 43.2 % (36.0-48.0); HEMOGLOBIN 14.4 g/dL (12-16); MCH 30.2 pg (26.0-34.0); MCHC 33.2 g/dL (31.0-37.0); MEAN PLATELET VOLUME 8.9 fL (7.4-10.4); MONOCYTES 9.5 % (2-11); PLATELET COUNT 185 10x3/uL (130-400); RBC 4.75 10x6/uL (4.00-5.40); RDW 13.8 % (11.5-14.5); WBC 5.8 10x3/uL (4.8-10.8)
[2020-12-16 16:36] LABS: CALC OSMOLALITY 276 mosm/kg (275-300); CALCIUM 8.9 mg/dL (8.5-10.1); CARBON DIOXIDE 28.2 mmol/L (21.0-32.0); CHLORIDE - SERUM 102 mmol/L (98-107); CREATININE - SERUM 0.7 mg/dL (0.6-1.3); GLUCOSE 95 mg/dL (74-106); POTASSIUM - SERUM 4.4 mmol/L (3.5-5.1); SODIUM 138 mmol/L (136-145); UREA NITROGEN 14 mg/dL (7-18); eGFR NON AFRICAN AMERICAN 89 mL/min (90-120)
[2020-12-16 16:45] LABS: ALBUMIN 4.3 g/dL (3.4-5.0); ALKALINE PHOSPHATASE 63 U/L (30-120); ALT (SGPT) 27 U/L (10-68); AMYLASE - SERUM 46 U/L (25-115); LIPASE 72 U/L (73-393); PROTEIN - SERUM 7.5 g/dL (6.4-8.2)
[2020-12-16 16:49] VITALS: Ht 165.1 cm; Wt 52.3 kg
[2020-12-16 16:53] LABS: TROPONIN-I < 0.017 ng/mL (0.000-0.060)
[2020-12-16 17:50] LABS: BILIRUBIN NEGATIVE (NEGATIVE); KETONE NEGATIVE mg/dL (< 1+); NITRITE NEGATIVE (NEGATIVE); PH 5.5 (5.0-8.0); UROBILINOGEN NORMAL mg/dL (< 2)
[2020-12-16 20:04] VITALS: BP 142/82
== END 2020-12-16 20:04 | disposition home or self-care (01) ==
LOC: D.ER 16:07
PROVIDERS: Family Medicine
DX: R10.9 Unspecified abdominal pain (principal)